=== PATIENT | female | born 1950 | race Asian ===

== ENCOUNTER → 2023-09-02 | Day surgery (SDC) | payer MEDICAID, OTHER ==
[~2023-09-02] VITALS: Ht 162.6 cm; Wt 83.2 kg
[~2023-09-02] MED LIST: ALEN70TA21 PO; AMOX400S53 PO; BET25T PO; CEFD300C2 PO; LETR2.5T PO; LIDOCAINE 2% (LOCAL ANESTH.) PF 5ml SDV ONE; LIDOCAINE VISCOUS 2% 15ML UD PO ONE; NITR-87 PO; PANT40TA2 PO; PROPOFOL 10 MG/ML 20 ML IV ONE; SILO8CAP PO; SUCR1SUS26 PO; cefTRIAXone 1GM/50ML D5W 50 ML IV ONE
[2023-09-02 14:51] VITALS: O2SAT 96
[2023-09-02 14:57] LABS: Basophils # (auto) 0.1 10 ^3/uL (0-0.2); Basophils % (auto) 0.7 % (0.0-2.0); Eosinophils # (auto) 0.1 10 ^3/uL (0-0.8); Eosinophils % (auto) 0.6 % (0.0-7.0); Hematocrit 40.2 % (36.0-46.0); Hemoglobin 13.2 g/dL (12.2-16.2); Lymphocytes # (auto) 2.4 10 ^3/uL (0.4-5.4); Lymphocytes % (auto) 23.9 % (10.0-50.0); Mean Corpuscular Hemoglobin 28.7 pg (28.0-32.0); Mean Corpuscular Hgb Conc. 32.7 g/dL (32.0-36.0); Mean Corpuscular Volume 87.6 fL (80.0-100.0); Monocytes # (auto) 0.6 10 ^3/uL (0-1.3); Monocytes % (auto) 6.3 % (0.0-12.0); Neutrophils # (auto) 6.9 10 ^3/uL (1.6-8.6); Neutrophils % (auto) 68.5 % (37.0-80.0); Red Blood Cells 4.59 10^6/uL (4.0-5.20); Red Cell Distribution Width 13.2 % (11.8-14.3); White Blood Cell 10.2 10^3/uL (4.4-10.8)
[2023-09-02] MEDS: SODIUM CHLORIDE 0.9% 1,000 ML IV ONE (15:13)
[2023-09-02 15:16] LABS: Alanine Aminotransferase 19 U/L (7-40); Albumin 4.4 g/dL (3.2-4.8); Alkaline Phosphatase 76 U/L (46-116); Anion Gap 9 (5-15); Aspartate Aminotransferase 23 U/L (13-40); BUN/Creatinine Ratio 10.5 (10.0-20.0); Blood Urea Nitrogen 8 mg/dL (9-23); Carbon Dioxide 22 mmol/L (20-30); Chloride 107 mmol/L (98-107); Glucose 123 mg/dL (74-106); INR 0.99 (0.9-1.15); Partial Thromboplastin Time 26.7 SEC (24.5-34.5); Potassium 4.3 mmol/L (3.5-5.1); Prothrombin Time 10.4 sec (9.3-11.8); Sodium 138 mmol/L (136-145)
[2023-09-02] MEDS: GLUCAGON EMERG KIT 1mg/1ml IV ONE (15:16)
[2023-09-02 15:17] LABS: Bilirubin, Total 0.5 mg/dL (0.2-1.0); Total Protein 7.3 g/dL (5.7-8.2)
[2023-09-02 16:01] LABS: Urine Bacteria FEW /hpf (None Seen); Urine Blood Negative /uL (Negative); Urine Clarity Turbid (Clear); Urine Color Colorless (Yellow); Urine Hyaline Cast FEW /lpf (0 - 2); Urine Protein, UAD Negative (Negative); Urine Specific Gravity 1.006 (1.001-1.035); Urine Urobilinogen Normal (Negative); Urine WBC 47 /hpf (0 - 5)
[2023-09-02 16:33] VITALS: RESP 17; TEMP 98.5; O2SAT 98
[2023-09-02] MEDS: PANTOPRAZOLE 40 MG/10 ML VIAL INJ IV ONE (17:01)
[2023-09-02] MEDS: LIDOCAINE VISCOUS 2% 15ML UD ONE (17:33)
[2023-09-02 17:36] VITALS: BP 133/66; PULSE 100; RESP 17; O2SAT 98
[2023-09-02] MEDS: MAALOX PLUS or MAALOX 30 ML PO ONE (17:45)
[2023-09-02] MEDS: DONNATAL 5ml ORAL Elix (BELLADONNA ALK-PHENOBARB) PO ONE (17:45)
== END | disposition home or self-care (01) ==
LOC: ER 13:54 → GI 16:05 → ER 18:38
PROVIDERS: ATTEND Internal Medicine Gastroenterology
DX: R13.10 Dysphagia, unspecified (principal); T18.128A Food in esophagus causing other injury, initial encounter; K22.2 Esophageal obstruction; K22.10 Ulcer of esophagus without bleeding; Z79.899 Other long term (current) drug therapy; Z98.890 Other specified postprocedural states; W44.F3XA Food entering into or through a natural orifice, initial encounter; Y93.89 Activity, other specified; Y92.89 Other specified places as the place of occurrence of the external cause; Y99.8 Other external cause status
CPT/HCPCS: 36415; 43247; 43249; 71045; 74176; 80053; 81001; 85025; 85610; 85730; 96374; 96375; 99285; C9113; J0696; J1610; J2001; J2704; J7030; 43450

== ENCOUNTER 2023-09-04 16:18 | Inpatient (IN) | payer MEDICAID, OTHER ==
[~2023-09-04] VITALS: Ht 162.6 cm; Wt 98.0 kg
[~2023-09-04 16:18] MED LIST changes: -ALEN70TA21 PO; -BET25T PO; -CEFD300C2 PO; -LETR2.5T PO; -LIDOCAINE 2% (LOCAL ANESTH.) PF 5ml SDV ONE; -LIDOCAINE VISCOUS 2% 15ML UD PO ONE; -NITR-87 PO; -PROPOFOL 10 MG/ML 20 ML IV ONE; -SILO8CAP PO; -cefTRIAXone 1GM/50ML D5W 50 ML IV ONE
[2023-09-04] MEDS: GASTROGRAFIN 120 ML SOL ONE (17:02)
[2023-09-04 18:29] LABS: Basophils # (auto) 0.1 10 ^3/uL (0-0.2); Basophils % (auto) 0.8 % (0.0-2.0); Eosinophils # (auto) 0.1 10 ^3/uL (0-0.8); Eosinophils % (auto) 1.4 % (0.0-7.0); Hematocrit 39.1 % (36.0-46.0); Hemoglobin 12.9 g/dL (12.2-16.2); Lymphocytes # (auto) 1.9 10 ^3/uL (0.4-5.4); Lymphocytes % (auto) 20.8 % (10.0-50.0); Mean Corpuscular Hgb Conc. 32.9 g/dL (32.0-36.0); Mean Corpuscular Volume 88.2 fL (80.0-100.0); Monocytes # (auto) 0.6 10 ^3/uL (0-1.3); Neutrophils # (auto) 6.5 10 ^3/uL (1.6-8.6); Red Blood Cells 4.44 10^6/uL (4.0-5.20); Red Cell Distribution Width 13.6 % (11.8-14.3); White Blood Cell 9.3 10^3/uL (4.4-10.8)
[2023-09-04 18:47] LABS: INR 1.02 (0.9-1.15); Partial Thromboplastin Time 27.9 SEC (24.5-34.5); Prothrombin Time 10.7 sec (9.3-11.8)
[2023-09-04 18:52] LABS: Alanine Aminotransferase 18 U/L (7-40); Albumin 4.4 g/dL (3.2-4.8); Alkaline Phosphatase 63 U/L (46-116); Anion Gap 8 (5-15); Aspartate Aminotransferase 25 U/L (13-40); BUN/Creatinine Ratio 14.3 (10.0-20.0); Bilirubin, Total 0.5 mg/dL (0.2-1.0); Blood Urea Nitrogen 11 mg/dL (9-23); Calcium 9.9 mg/dL (8.7-10.4); Carbon Dioxide 26 mmol/L (20-30); Chloride 107 mmol/L (98-107); Glucose 100 mg/dL (74-106); Potassium 4.1 mmol/L (3.5-5.1); Sodium 141 mmol/L (136-145); Total Protein 7.6 g/dL (5.7-8.2)
[2023-09-04] MEDS: SODIUM CHLORIDE 0.9% 1,000 ML IV ONE (19:35)
[2023-09-04] MEDS ORDERED: SODIUM CHLORIDE 0.9% 1,000 ML IV SCH (19:45)
[2023-09-04] MEDS ORDERED: ACETAMINOPHEN 325 MG TAB PO PRN (19:45)
[2023-09-04 20:06] LABS: LDL Cholesterol 85 mg/dL (< 100); Triglycerides 95 mg/dL (< 150)
[2023-09-04 20:08] LABS: Cholesterol 159 mg/dL (< 200); HDL Cholesterol 59 mg/dL (40-59)
[2023-09-04] MEDS: IOHEXOL 300 MG/ML 100ML BOTTLE IJ ONE (20:22)
[2023-09-04 20:54] VITALS: PULSE 85; RESP 20; O2SAT 100
[2023-09-04] MEDS: PANTOPRAZOLE 40 MG/10 ML VIAL INJ IV ONE (20:56)
[2023-09-05] VITALS (7 sets, daily range): BP systolic 142–170; BP diastolic 80–84; PULSE 80–91; RESP 18–19; TEMP 97.8–98.7; O2SAT 95–98
[2023-09-05] MEDS: SODIUM CHLORIDE 0.9% 1,000 ML IV SCH (00:12)
[2023-09-05] MEDS: IOHEXOL 350 MG/ML 100ML IJ ONE (04:18)
[2023-09-05] MEDS ORDERED: ALEN70TA21 PO (04:24)
[2023-09-05] MEDS ORDERED: BET25T PO (04:24)
[2023-09-05] MEDS ORDERED: SILO8CAP PO (04:24)
[2023-09-05] MEDS ORDERED: LETR2.5T PO (04:24)
[2023-09-05] MEDS: PANTOPRAZOLE 40 MG/10 ML VIAL INJ IV SCH ×2 (09:19→21:46)
[2023-09-05] MEDS: cefTRIAXone 1GM/50ML D5W 50 ML IV SCH (09:20)
[2023-09-05] MEDS: SUCRALFATE 1 GM/10 ML ORAL SUSP PO SCH (09:20)
[2023-09-05 09:41] LABS: Alanine Aminotransferase 16 U/L (7-40); Alkaline Phosphatase 59 U/L (46-116); Anion Gap 9 (5-15); Aspartate Aminotransferase 25 U/L (13-40); BUN/Creatinine Ratio 14.3 (10.0-20.0); Bilirubin, Total 0.5 mg/dL (0.2-1.0); Blood Urea Nitrogen 10 mg/dL (9-23); Carbon Dioxide 24 mmol/L (20-30); Chloride 109 mmol/L (98-107); Glucose 71 mg/dL (74-106); Potassium 3.8 mmol/L (3.5-5.1); Sodium 142 mmol/L (136-145)
[2023-09-05 10:00] LABS: Basophils # (auto) 0.1 10 ^3/uL (0-0.2); Eosinophils # (auto) 0.2 10 ^3/uL (0-0.8); Lymphocytes # (auto) 2.2 10 ^3/uL (0.4-5.4); Nucleated Red Blood Cells % 0.7 %; Red Blood Cells 4.34 10^6/uL (4.0-5.20)
[2023-09-05 10:10] LABS: Basophils % (auto) 0.9 % (0.0-2.0); Eosinophils % (auto) 2.3 % (0.0-7.0); Hematocrit 38.1 % (36.0-46.0); Hemoglobin 12.3 g/dL (12.2-16.2); Lymphocytes % (auto) 22.5 % (10.0-50.0); Mean Corpuscular Hemoglobin 28.5 pg (28.0-32.0); Mean Corpuscular Hgb Conc. 32.4 g/dL (32.0-36.0); Mean Corpuscular Volume 87.8 fL (80.0-100.0); Monocytes # (auto) 0.7 10 ^3/uL (0-1.3); Monocytes % (auto) 7.2 % (0.0-12.0); Neutrophils # (auto) 6.6 10 ^3/uL (1.6-8.6); Neutrophils % (auto) 67.1 % (37.0-80.0); Red Cell Distribution Width 13.7 % (11.8-14.3); White Blood Cell 9.8 10^3/uL (4.4-10.8)
[2023-09-05 10:57] LABS: Urine Bacteria FEW /hpf (None Seen); Urine Blood Negative /uL (Negative); Urine Budding Yeast OCCASIONAL /hpf (None Seen); Urine Clarity Turbid (Clear); Urine Color Light-Yellow (Yellow); Urine Protein, UAD Negative (Negative); Urine Specific Gravity 1.031 (1.001-1.035); Urine Urobilinogen Normal (Negative); Urine WBC 149 /hpf (0 - 5)
[2023-09-05 12:37] LABS: Platelet Estimate Adequate
[2023-09-05] MEDS ORDERED: LIDOCAINE VISCOUS 2% 15ML UD ONE (13:53)
[2023-09-05] MEDS ORDERED: fentaNYL CITRATE 100 MCG/2 ML VL ONE (15:24)
[2023-09-05] MEDS ORDERED: MIDAZOLAM HCL 2MG/2ML 2ml VIAL (1mg/ml) ONE (15:26)
[2023-09-05] MEDS ORDERED: PROPOFOL 10 MG/ML 20 ML IV ONE (15:43)
[2023-09-05] MEDS ORDERED: KETAMINE 50mg/ML 1ml syringe ONE (15:43)
[2023-09-05] MEDS ORDERED: LIDOCAINE 2% (LOCAL ANESTH.) PF 5ml SDV ONE (15:44)
[2023-09-05] MEDS ORDERED: ONDANSETRON HCL 4 MG/2 ML VIAL ONE (15:57)
[2023-09-05] MEDS: ONDANSETRON HCL 4 MG/2 ML VIAL IV ONE (16:15)
[2023-09-06] VITALS (8 sets, daily range): BP systolic 132–149; BP diastolic 52–78; PULSE 71–90; RESP 16–19; TEMP 97.2–98.7; O2SAT 94–100
[2023-09-06] MEDS: SUCRALFATE 1 GM/10 ML ORAL SUSP PO SCH (18:00)
[2023-09-07] VITALS (8 sets, daily range): BP systolic 137–159; BP diastolic 56–86; PULSE 66–93; RESP 16–18; TEMP 36.9; O2SAT 95–100
[2023-09-07] MEDS ORDERED: SUCR1SUS26 PO (10:48)
[2023-09-07] MEDS ORDERED: PANT40TA2 PO (10:48)
[2023-09-07] MEDS ORDERED: CEFD300C2 PO (10:51)
[2023-09-07] MEDS: ERTAPENEM SOD INJ 1 GM in SODIUM CHL 0.9% 50 ML IV ONE (13:30)
[2023-09-07] MEDS: PANTOPRAZOLE 40 MG/10 ML VIAL INJ IV SCH (22:49)
[2023-09-08 00:43] VITALS: BP 140/71; PULSE 77; RESP 18; TEMP 98.2; O2SAT 99
[2023-09-08 05:23] VITALS: BP 111/72; PULSE 85; RESP 17; TEMP 98.4; O2SAT 93
[2023-09-08 09:00] VITALS: BP 141/69; PULSE 72; RESP 18; TEMP 98.4; O2SAT 98
[2023-09-08] MEDS: FLORASTOR (S. BOULARDII) 250 MG CAP PO SCH (09:54)
[2023-09-08] MEDS: ERTAPENEM SOD INJ 1 GM in SODIUM CHL 0.9% 50 ML IV SCH (09:55)
[2023-09-08 17:00] VITALS: BP 138/77; PULSE 74; RESP 19; TEMP 98.1; O2SAT 99
[2023-09-08 20:00] VITALS: BP 137/66; PULSE 87; RESP 18; TEMP 98.1; O2SAT 99
[2023-09-08 22:10] VITALS: BP 137/66; PULSE 87; RESP 18; TEMP 98.1; O2SAT 99
[2023-09-09 05:58] VITALS: BP 141/74; PULSE 80; RESP 17; TEMP 98.2; O2SAT 100
[2023-09-09 08:00] VITALS: RESP 20
[2023-09-09] MEDS: ENOXAPARIN SOD 40 MG/0.4 ML SYRINGE SC SCH (08:22)
[2023-09-09 09:25] VITALS: BP 125/61; PULSE 83; RESP 17; TEMP 97.7; O2SAT 99
[2023-09-09 12:32] VITALS: BP 141/83; PULSE 68; RESP 16; TEMP 97.5; O2SAT 96
[2023-09-09 16:13] VITALS: BP 113/58; PULSE 76; RESP 17; TEMP 98; O2SAT 92
[2023-09-09 21:00] VITALS: BP 147/70; PULSE 86; RESP 16; TEMP 98.3; O2SAT 97
[2023-09-09] MEDS: PANTOPRAZOLE 40 MG TAB PO SCH (21:20)
[2023-09-10 01:00] VITALS: BP 165/97; PULSE 88; RESP 17; TEMP 98.2; O2SAT 99
[2023-09-10 05:00] VITALS: BP 151/82; PULSE 83; RESP 18; TEMP 98.8; O2SAT 100
[2023-09-10 06:01] LABS: Chloride 106 mmol/L (98-107); Potassium 3.7 mmol/L (3.5-5.1); Sodium 140 mmol/L (136-145)
[2023-09-10 06:02] LABS: Anion Gap 6 (5-15); Carbon Dioxide 28 mmol/L (20-30)
[2023-09-10 06:03] LABS: Calcium 9.6 mg/dL (8.7-10.4)
[2023-09-10 06:07] LABS: BUN/Creatinine Ratio 9.2 (10.0-20.0); Blood Urea Nitrogen 6 mg/dL (9-23); Glucose 97 mg/dL (74-106)
[2023-09-10 09:00] VITALS: BP 159/78; PULSE 80; RESP 18; TEMP 98.7; O2SAT 97
[2023-09-10 13:00] VITALS: BP 145/59; PULSE 76; RESP 20; TEMP 98.7; O2SAT 98
[2023-09-12] MEDS ORDERED: ERTAPENEM SOD INJ 1 GM in SODIUM CHL 0.9% 50 ML IV SCH (10:00)
== END 2023-09-10 14:55 | disposition home or self-care (01) | DRG 243 ==
LOC: ER 16:18 → OVERFLOW 19:37 → WEST WING 09-05 04:20
PROVIDERS: ADMIT Nurse Practitioner Family; ATTEND Internal Medicine
PROC: 0DB98ZX Excision of Duodenum, Via Natural or Artificial Opening Endoscopic, Diagnostic (ICD-10-PCS; 2023-09-05)
PROC: 0DB68ZX Excision of Stomach, Via Natural or Artificial Opening Endoscopic, Diagnostic (ICD-10-PCS; 2023-09-05)
PROC: 0DB58ZX Excision of Esophagus, Via Natural or Artificial Opening Endoscopic, Diagnostic (ICD-10-PCS; 2023-09-05)
PROC: 0D738ZZ Dilation of Lower Esophagus, Via Natural or Artificial Opening Endoscopic (ICD-10-PCS; principal; 2023-09-05 15:25)
DX: K22.2 Esophageal obstruction (principal); K76.89 Other specified diseases of liver; B96.1 Klebsiella pneumoniae [K. pneumoniae] as the cause of diseases classified elsewhere; N30.00 Acute cystitis without hematuria; R13.12 Dysphagia, oropharyngeal phase; Z85.3 Personal history of malignant neoplasm of breast; K21.00 Gastro-esophageal reflux disease with esophagitis, without bleeding; I10 Essential (primary) hypertension; K43.9 Ventral hernia without obstruction or gangrene; Z90.12 Acquired absence of left breast and nipple; Z79.899 Other long term (current) drug therapy
CPT/HCPCS: 36415; 71045; 71260; 74177; 74220; 76775; 80048; 80053; 80061; 81001; 84443; 85025; 85610; 85730; 87086; 96361; 96374; C9113; G0378; J1335; J2001; J2250; J2405; J2704

== ENCOUNTER 2023-09-11 12:09 | Emergency (ER) | payer OTHER ==
[~2023-09-11] VITALS: Ht 162.6 cm; Wt 80.0 kg
[~2023-09-11 12:09] MED LIST changes: +ALEN70TA21 PO; +BET25T PO; +LETR2.5T PO; +SILO8CAP PO
[2023-09-11 12:47] VITALS: BP 161/76; PULSE 93; RESP 15; O2SAT 99
[2023-09-11] MEDS: ERTAPENEM SOD INJ 1 GM in SODIUM CHL 0.9% 50 ML IV ONE (15:37)
== END 2023-09-11 16:52 | disposition home or self-care (01) ==
LOC: ER 12:09
DX: R03.0 Elevated blood-pressure reading, without diagnosis of hypertension (principal); B96.89 Other specified bacterial agents as the cause of diseases classified elsewhere; K21.9 Gastro-esophageal reflux disease without esophagitis; Z85.9 Personal history of malignant neoplasm, unspecified; Z79.899 Other long term (current) drug therapy
CPT/HCPCS: 96365; 99284; J1335

== ENCOUNTER → 2023-09-20 | Outpatient (CLI) | payer MEDICAID ==
[2023-09-20 12:02] LABS: Basophils # (auto) 0.1 10 ^3/uL (0-0.2); Basophils % (auto) 0.8 % (0.0-2.0); Eosinophils # (auto) 0.3 10 ^3/uL (0-0.8); Eosinophils % (auto) 3.2 % (0.0-7.0); Hematocrit 39.1 % (36.0-46.0); Hemoglobin 12.7 g/dL (12.2-16.2); Lymphocytes # (auto) 2.6 10 ^3/uL (0.4-5.4); Lymphocytes % (auto) 30.4 % (10.0-50.0); Mean Corpuscular Hemoglobin 28.5 pg (28.0-32.0); Mean Corpuscular Hgb Conc. 32.6 g/dL (32.0-36.0); Mean Corpuscular Volume 87.3 fL (80.0-100.0); Monocytes % (auto) 11.5 % (0.0-12.0); Neutrophils # (auto) 4.7 10 ^3/uL (1.6-8.6); Neutrophils % (auto) 54.1 % (37.0-80.0); Nucleated Red Blood Cells % 0.2 %; Red Blood Cells 4.47 10^6/uL (4.0-5.20); Red Cell Distribution Width 13.3 % (11.8-14.3); White Blood Cell 8.6 10^3/uL (4.4-10.8)
[2023-09-20 12:07] LABS: Chloride 104 mmol/L (98-107); Potassium 4.4 mmol/L (3.5-5.1); Sodium 139 mmol/L (136-145)
[2023-09-20 12:08] LABS: Anion Gap 6 (5-15); Carbon Dioxide 29 mmol/L (20-30)
[2023-09-20 12:13] LABS: BUN/Creatinine Ratio 11.1 (10.0-20.0); Blood Urea Nitrogen 8 mg/dL (9-23); Glucose 93 mg/dL (74-106)
== END | disposition home or self-care (01) ==
LOC: LAB 11:31
PROVIDERS: ATTEND Internal Medicine
DX: N39.0 Urinary tract infection, site not specified (principal)
CPT/HCPCS: 36415; 80048; 85025

== ENCOUNTER → 2023-10-05 | Outpatient (CLI) | payer MEDICAID | END | disposition home or self-care (01) | LOC: LAB 09:30 | PROVIDERS: ATTEND Internal Medicine | DX: N39.0 Urinary tract infection, site not specified (principal) | CPT/HCPCS: 87086; 87088; 87186 ==

== ENCOUNTER 2023-11-24 09:59 | Day surgery (SDC) | payer MEDICAID ==
[2023-11-22 14:55] LABS: Urine Bacteria None Seen /hpf (None Seen)
[2023-11-22 15:02] LABS: Basophils # (auto) 0.1 10 ^3/uL (0-0.2); Basophils % (auto) 0.8 % (0.0-2.0); Eosinophils # (auto) 0.2 10 ^3/uL (0-0.8); Eosinophils % (auto) 2.1 % (0.0-7.0); Hematocrit 36.3 % (36.0-46.0); Lymphocytes # (auto) 3.1 10 ^3/uL (0.4-5.4); Lymphocytes % (auto) 33.2 % (10.0-50.0); Mean Corpuscular Hemoglobin 28.9 pg (28.0-32.0); Mean Corpuscular Volume 87.4 fL (80.0-100.0); Monocytes # (auto) 0.8 10 ^3/uL (0-1.3); Monocytes % (auto) 8.5 % (0.0-12.0); Neutrophils # (auto) 5.1 10 ^3/uL (1.6-8.6); Neutrophils % (auto) 55.4 % (37.0-80.0); Nucleated Red Blood Cells % 0.1 %; Platelet Count (auto) 266 10^3/uL (140-450); Red Blood Cells 4.15 10^6/uL (4.0-5.20); Red Cell Distribution Width 13.6 % (11.8-14.3); White Blood Cell 9.2 10^3/uL (4.4-10.8)
[2023-11-22 15:07] LABS: Urine Blood Negative /uL (Negative); Urine Clarity Clear (Clear); Urine Color Colorless (Yellow); Urine Protein, UAD Negative (Negative); Urine Specific Gravity 1.006 (1.001-1.035); Urine Urobilinogen Normal (Negative); Urine WBC 6 /hpf (0 - 5); Urine pH 6.5 (5.0-9.0)
[2023-11-22 15:44] LABS: Alanine Aminotransferase 14 U/L (7-40); Albumin 4.1 g/dL (3.2-4.8); Alkaline Phosphatase 74 U/L (46-116); Anion Gap 3 (5-15); Aspartate Aminotransferase 12 U/L (13-40); BUN/Creatinine Ratio 13.2 (10.0-20.0); Bilirubin, Total 0.3 mg/dL (0.2-1.0); Blood Urea Nitrogen 10 mg/dL (9-23); Calcium 9.8 mg/dL (8.5-10.1); Carbon Dioxide 28 mmol/L (20-30); Chloride 105 mmol/L (98-107); Glucose 114 mg/dL (74-106); Potassium 4.5 mmol/L (3.5-5.1); Sodium 136 mmol/L (136-145); Total Protein 6.9 g/dL (5.7-8.2)
[2023-11-22 16:18] LABS: INR 0.98 (0.9-1.15); Prothrombin Time 10.4 sec (9.3-11.8)
[~2023-11-24] VITALS: Ht 162.6 cm; Wt 80.3 kg
[~2023-11-24 09:59] MED LIST changes: -ALEN70TA21 PO; -AMOX400S53 PO; -BET25T PO; -LETR2.5T PO; -SILO8CAP PO
[2023-11-24] MEDS ORDERED: MIDAZOLAM HCL 2MG/2ML 2ml VIAL (1mg/ml) ONE (13:28)
[2023-11-24] MEDS ORDERED: ONDANSETRON HCL 4 MG/2 ML VIAL ONE (13:57)
[2023-11-24] MEDS ORDERED: PROPOFOL 10 MG/ML 20 ML IV ONE (13:57)
[2023-11-24 14:10] VITALS: TEMP 98.3; O2SAT 100
[2023-11-24 14:50] VITALS: BP 140/68; PULSE 72; RESP 20; O2SAT 99
== END 2023-11-24 14:58 | disposition home or self-care (01) ==
LOC: GI 09:59
PROVIDERS: ATTEND Internal Medicine Gastroenterology
DX: R13.12 Dysphagia, oropharyngeal phase (principal); K21.9 Gastro-esophageal reflux disease without esophagitis; K44.9 Diaphragmatic hernia without obstruction or gangrene; K22.2 Esophageal obstruction; Z85.3 Personal history of malignant neoplasm of breast; Z83.3 Family history of diabetes mellitus; Z80.8 Family history of malignant neoplasm of other organs or systems; Z79.899 Other long term (current) drug therapy; Z98.890 Other specified postprocedural states
CPT/HCPCS: 36415; 43239; 43450; 80053; 81001; 85025; 85610; 85730; 88305; 88312; 88342; J2250; J2405; J2704; J7030